=== PATIENT | female | born 1940 | race Caucasian/White ===

== ENCOUNTER → 2021-03-04 | Outpatient (REF) | payer MEDICARE ==
[~2021-03-04] MED LIST: ATEN100T PEG; CETI10TA PEG; COLA100C2 PEG; VITAMIN D50000 UNT PEG; [UNRECOGNIZED DRUG - OTHER] PEG; nexium PEG
[2021-03-04 12:54] LABS: FOLATE 4.7 NG/ML
== END ==
LOC: M LAB REF 12:07
PROVIDERS: ATTEND Internal Medicine
DX: R41.3 Other amnesia (principal)

== ENCOUNTER → 2021-05-21 | Outpatient (REF) | LOC: M LABSMTC 10:43 | PROVIDERS: ATTEND Pediatrics | DX: Z11.52 Encounter for screening for COVID-19 (principal); Z20.822 Contact with and (suspected) exposure to COVID-19 ==

== ENCOUNTER 2021-09-13 09:42 | Emergency (ER) | payer MEDICARE, OTHER ==
[~2021-09-13] VITALS: Ht 152.4 cm; Wt 68.0 kg
[2021-09-13 10:43] LABS: BASO % 0.3 % (0.0-1.0); EOS % 0.3 % (0.0-3.0); HEMATOCRIT 44.7 % (36.0-47.0); HEMOGLOBIN 13.9 g/dl (12.0-15.5); LYMPH # 1.1 10^3/uL (1.5-5.0); LYMPH % 9.9 % (24.0-44.0); MEAN CORPUSCULAR HEMOGLOBIN 26.6 pg (27.0-33.0); MEAN CORPUSCULAR HGB CONC 31.1 g/dl (32.0-36.5); MEAN CORPUSCULAR VOLUME 85.6 fl (80.0-96.0); MONO # 0.5 10^3/uL (0.0-0.8); MONO % 4.5 % (2.0-8.0); NEUTROPHILS % 84.4 % (36.0-66.0); PLATELET COUNT, AUTOMATED 227 10^3/uL (150-450); RED BLOOD COUNT 5.22 10^6/uL (4.00-5.40); WHITE BLOOD COUNT 10.6 10^3/uL (4.0-10.0)
[2021-09-13 11:13] LABS: ALBUMIN 3.4 GM/DL (3.2-5.2); ALT/SGPT 15 U/L (12-78); BILIRUBIN,DIRECT 0.1 MG/DL (0.0-0.2); BILIRUBIN,TOTAL 0.3 MG/DL (0.2-1.0); BLOOD UREA NITROGEN 9 MG/DL (7-18); CALCIUM LEVEL 9.4 MG/DL (8.8-10.2); CARBON DIOXIDE LEVEL 27 MEQ/L (21-32); CHLORIDE LEVEL 107 MEQ/L (98-107); CREATININE FOR GFR 0.68 MG/DL (0.55-1.30); GLOMERULAR FILTRATION RATE > 60.0 (>32); GLUCOSE, FASTING 158 MG/DL (70-100); NT-PRO BNP 762 PG/ML (<450); POTASSIUM SERUM 3.8 MEQ/L (3.5-5.1); SODIUM LEVEL 142 MEQ/L (136-145); TOTAL PROTEIN 6.9 GM/DL (6.4-8.2)
[2021-09-13 15:08] VITALS: BP 156/75
[2021-09-13] MEDS ORDERED: ISOVUE-370 76% 100ML VIAL As Ordered ONE (15:35)
[2021-09-13] MEDS ORDERED: PRED20TA PO (17:04)
== END 2021-09-13 17:43 | disposition home or self-care (01) ==
LOC: EDBD 09:42 → M ED 09:42
DX: R91.1 Solitary pulmonary nodule (principal); R06.1 Stridor; G30.9 Alzheimer's disease, unspecified; Z79.899 Other long term (current) drug therapy
CPT/HCPCS: 36415; 71045; 71260; 80048; 80076; 83605; 83880; 85025; 87040; 87798; 93005; 93041; 94760; 99285; Q9967

== ENCOUNTER → 2021-09-19 | Outpatient (REF) | payer MEDICARE ==
[~2021-09-19] MED LIST changes: +PRED20TA PO
[2021-09-19 14:36] LABS: RSV AMPLIFICATION NEGATIVE (NEGATIVE)
== END ==
PROVIDERS: ATTEND Internal Medicine
DX: Z01.818 Encounter for other preprocedural examination (principal); Z11.52 Encounter for screening for COVID-19

== ENCOUNTER → 2021-10-19 | Outpatient (REF) | payer MEDICARE | LOC: M LAB REF 16:48 | PROVIDERS: ATTEND Internal Medicine | DX: K22.9 Disease of esophagus, unspecified (principal) ==